=== PATIENT | male | born 1945 | race Caucasian/White ===

== ENCOUNTER 2022-05-12 05:30 | Day surgery (SDC) | payer MEDICARE, BC ==
[2022-05-04 10:56] LABS: BASOPHILS % (AUTO) 0.4 % (0-1); EOSINOPHILS # (AUTO) 0.1 X10'3 (0-0.9); EOSINOPHILS % (AUTO) 1.4 % (0-6); LYMPHOCYTES # (AUTO) 0.9 X10'3 (1.1-4.8); LYMPHOCYTES % (AUTO) 22.8 % (21-51); MEAN CORPUSCULAR HEMOGLOBIN 35.6 PG (27.0-31.0); MEAN CORPUSCULAR HGB CONC 33.6 g/dL (33.0-36.5); MEAN PLATELET VOLUME 6.4 FL (7.4-10.4); MONOCYTES # (AUTO) 0.5 X10'3 (0-0.9); MONOCYTES % (AUTO) 11.7 % (2-12); NEUTROPHILS # (AUTO) 2.6 X10'3 (1.8-7.7); NEUTROPHILS % (AUTO) 63.7 % (42-75); PRE OP HEMATOCRIT 38.7 % (42.0-52.0); PRE OP PLATELET COUNT 197 X10'3 (140-440); RED BLOOD COUNT 3.65 X10'6 (4.70-6.10); RED CELL DISTRIBUTION WIDTH 13.7 % (11.5-14.5)
[2022-05-04 11:13] LABS: ALBUMIN 3.8 G/DL (3.4-5.0); ALBUMIN/GLOBULIN RATIO 1.2 (1.1-1.5); ALKALINE PHOSPHATASE 64 IU/L (46-116); BLOOD UREA NITROGEN 11 MG/DL (7-18); CALCIUM 8.7 MG/DL (8.5-10.1); CHLORIDE 100 MMOL/L (99-107); CREATININE 0.92 MG/DL (0.60-1.10); PRE OP ALT 31 U/L (30-65); PRE OP ANION GAP 5 (8-16); PRE OP AST 31 U/L (10-37); PRE OP BILIRUB, TOTAL 0.6 MG/DL (0.0-1.0); PRE OP GLUCOSE 98 MG/DL (70-104); PRE OP POTASSIUM 4.4 MMOL/L (3.4-5.1); PRE OP SODIUM 134 MMOL/L (135-145); TOTAL CARBON DIOXIDE 29.4 MMOL/L (24-32); TOTAL PROTEIN 7.1 G/DL (6.4-8.2); eGFR 80 ML/MIN
[~2022-05-12] VITALS: Ht 172.7 cm; Wt 126.4 kg
[~2022-05-12 05:30] MED LIST: ATOR20TA66 PO; CALC625T31; CETI10TA15 PO; CHOL2000 PO; CRAN300T PO; CYAN1TAB69; DILT-88 PO; ESOM40CA49 PO; GLUC-95 PO; MAGN250T11 PO; PREN-55 PO; RIVA20TA PO; [UNRECOGNIZED DRUG - CODE]; [UNRECOGNIZED DRUG - CODE] PO; clindamycin-Cleocin 900mg/D5W 50 ML IV ONE; famotidine 20mg tablet PO ONE; ringers solution, lacted 1,000 ML IV SCH
[2022-05-12 05:40] VITALS: BP 155/92
[2022-05-12] MEDS ORDERED: BUPIVAcaine 0.5% inj/PF 30 ML ONE (06:50)
[2022-05-12] MEDS ORDERED: midazolam 1 mg/ML 2ml injection ONE (07:35)
[2022-05-12] MEDS ORDERED: fentaNYL/PF 50MCG/1 ML 2ML syringe ONE (07:35)
[2022-05-12] MEDS ORDERED: BUPIVAcaine 0.5% inj/PF 30 ml vial IJ ONE (07:53)
[2022-05-12] MEDS ORDERED: LIDOcaine 0.5% (5mg/ml) 50ml vial ONE (07:59)
[2022-05-12] MEDS ORDERED: propofol inj 20 ML IV ONE (07:59)
[2022-05-12] MEDS ORDERED: ondansetron/PF 4mg/2ml inj IV PRN ×2 (08:05)
[2022-05-12] MEDS ORDERED: acetaminophen 1,000mg/100ml IV 100 ML IV PRN ×2 (08:05)
[2022-05-12] MEDS ORDERED: meperidine/PF 25mg/ml syringe IV PRN ×6 (08:05)
[2022-05-12] MEDS ORDERED: labetalol 20mg/4ml (5mg/ml) syringe IV PRN ×2 (08:05)
[2022-05-12] MEDS ORDERED: proCHLORperazine 10 MG/2 ml inj IV PRN ×2 (08:05)
[2022-05-12] MEDS ORDERED: morphine 2 MG/ML inj. syringe IV PRN ×2 (08:05)
[2022-05-12] MEDS ORDERED: ketorolac tromethamine 15mg/ml inj. IV ONE (08:05)
[2022-05-12] MEDS ORDERED: morphine 4 MG/ML inj SYRINge IV PRN ×2 (08:05)
[2022-05-12] MEDS ORDERED: ringers solution, lacted 1,000 ML IV SCH ×2 (08:05)
[2022-05-12] MEDS ORDERED: hydrALAZINE 20mg/ml inj. IV PRN ×2 (08:05)
[2022-05-12 08:36] VITALS: BP 134/90
--- NOTE | 2022-05-12 08:36 | NUR ---
Received from OR via [facility], accompanied by Anesthesiologist and report given by HILDA Anesthesiologist. PATIENT WAKING UP, NO S/S OF PAIN, V/S WNL, SCD ON, PIV 20G TO LUE, RIGHT WRIST DRESSING C/D/I. ICE AND ELEVATED RUE. Addendum: 05/12/22 at 0905 by Juwan Goldsmith RN Amended: Links added.
[2022-05-12 08:40] VITALS: BP 133/90
[2022-05-12 08:50] VITALS: BP 129/78
[2022-05-12 09:10] VITALS: BP 150/99
[2022-05-12 09:20] VITALS: BP 151/94
--- NOTE | 2022-05-12 09:26 | NUR ---
ALL DISCHARGE CRITERIA HAS BEEN MET. VSS, PAIN AT A TOLERABLE LEVEL, ABLE TO SAFELY AMBULATE AND TRANSFER SELF. IV TAKEN OUT WITHOUT ANY COMPLICATIONS. ALL DISCHARGE INSTRUCTIONS COVERED WITH PATIENT AND ALL QUESTIONS ANSWERED. PATIENT TAKEN OUT VIA WHEELCHAIR WITH ALL BELONGINGS TO PERSONAL VEHICLE WHERE FAMILY/FRIEND DROVE PATIENT HOME. Addendum: 05/12/22 at 0930 by Juwan Goldsmith RN Amended: Links added.
== END 2022-05-12 09:26 | disposition home or self-care (01) ==
LOC: PAS 05:30
PROVIDERS: ATTEND Orthopaedic Surgery Hand Surgery
DX: G56.01 Carpal tunnel syndrome, right upper limb (principal); M18.11 Unilateral primary osteoarthritis of first carpometacarpal joint, right hand; M19.031 Primary osteoarthritis, right wrist; M19.032 Primary osteoarthritis, left wrist; M17.0 Bilateral primary osteoarthritis of knee; I10 Essential (primary) hypertension; I48.91 Unspecified atrial fibrillation; G47.33 Obstructive sleep apnea (adult) (pediatric); E66.9 Obesity, unspecified; Z68.42 Body mass index [BMI] 45.0-49.9, adult; Z88.0 Allergy status to penicillin; Z88.2 Allergy status to sulfonamides; Z79.899 Other long term (current) drug therapy; Z98.890 Other specified postprocedural states; Z98.52 Vasectomy status; Z72.89 Other problems related to lifestyle; Z87.891 Personal history of nicotine dependence; Z85.828 Personal history of other malignant neoplasm of skin
CPT/HCPCS: 25310; 25447; 36415; 64721; 80053; 82948; 85025; 93005; J2250; J2704; J3010; J3490; J7030; J7120; S0020; Z7506; Z7508; Z7512; A4215; A4618; A7000

== ENCOUNTER 2023-08-18 10:25 | Emergency (ER) | payer MEDICARE, BC ==
[~2023-08-18] VITALS: Ht 172.7 cm; Wt 127.1 kg
[~2023-08-18 10:25] MED LIST changes: -clindamycin-Cleocin 900mg/D5W 50 ML IV ONE; -famotidine 20mg tablet PO ONE; -ringers solution, lacted 1,000 ML IV SCH
[2023-08-18 10:27] VITALS: TEMP 97.8
[2023-08-18] MEDS ORDERED: DOXY-1 PO (11:19)
[2023-08-18 11:42] VITALS: BP 141/74; PULSE 73; RESP 16; O2SAT 93
== END 2023-08-18 11:44 | disposition home or self-care (01) ==
LOC: ER 10:26
DX: M70.21 Olecranon bursitis, right elbow (principal); L03.113 Cellulitis of right upper limb; L02.413 Cutaneous abscess of right upper limb; Z88.0 Allergy status to penicillin; Z88.2 Allergy status to sulfonamides; Y93.89 Activity, other specified
CPT/HCPCS: 99283; A6449

== ENCOUNTER 2024-07-30 09:57 | Emergency (ER) | payer MEDICARE, BC ==
[~2024-07-30] VITALS: Ht 172.7 cm; Wt 98.3 kg
[~2024-07-30 09:57] MED LIST changes: -PREN-55 PO
[2024-07-30 12:01] LABS: BILIRUBIN,URINE NEGATIVE (Neg); CLARITY,URINE CLOUDY (Clear); COLOR,URINE YELLOW (Yellow); GLUCOSE, URINE NEGATIVE (Neg); KETONES,URINE 15 mg/dl (Neg); LEUKOCYTE ESTERASE ,URINE LARGE (Neg); NITRITES, URINE NEGATIVE (Neg); OCCULT BLOOD,URINE SMALL (Neg); PROTEIN,URINE 100 mg/dl (Neg); UROBILINOGEN,URINE 0.2 E.U/dL (0.2-1.0)
[2024-07-30 12:03] LABS: UA COLLECTION TYPE FOLEY CATH
[2024-07-30 12:07] LABS: WBC,URINE TNTC /HPF (0-4)
[2024-07-30 12:08] LABS: BACTERIA,URINE 2+ /HPF (Neg); SQUAMOUS EPITHELIAL CELL,UR FEW /LPF (FEW); TRANSITIONAL EPI CELLS,URINE FEW /HPF
[2024-07-30] MEDS ORDERED: CIPR-259 PO (12:30)
[2024-07-30] MEDS ORDERED: TAMS-55 PO (12:31)
[2024-07-30] MEDS: tamsulosin 0.4mg capsule PO ONE (12:37)
[2024-07-30] MEDS: ciprofloxacin 250mg tablet PO ONE (12:37)
[2024-07-30 13:16] VITALS: BP 121/55; PULSE 62; RESP 12; TEMP 98.6; O2SAT 93
[2024-07-30] MEDS ORDERED: tamsulosin 0.4mg capsule PO SCH (21:00)
== END 2024-07-30 13:08 | disposition home or self-care (01) ==
LOC: ER 09:58
DX: N39.0 Urinary tract infection, site not specified (principal); Z88.0 Allergy status to penicillin; Z88.2 Allergy status to sulfonamides; Z90.89 Acquired absence of other organs
CPT/HCPCS: 51702; 51798; 81001; 87088; 99284; A4314; A4340; A4358